=== PATIENT | female | born 1940 | race Caucasian/White ===

== ENCOUNTER → 2017-09-26 | Outpatient (CLI) | payer MEDICARE ==
[~2017-09-26] MED LIST: AMLO5 PO; ANTACID PO; ASPI325 PO; ASPI81CH PO; Acetaminophen325 M1 PO; BISA10S PR; CITA20 PO; CLOP75 PO; CVS DISPOSABLE399 ML PR; CYAN1000I IM; HYDCHL25; HYDCHL25 PO; LISI20 PO; LOPE2C PO; MEGE40T PO; METO100ER PO; Milk Of Ma400 MG/5 M PO; NITR100CA PO; Omeprazole20 M1 PO; PANT40 PO; PROC25S PR; Pedi-Dri 100,0060 GM TOP; Potassium20 MEQ/11 PO; XARELTO15 MG PO; Zofran Odt4 MG PO
== END | disposition home or self-care (01) ==
LOC: LAB 11:00
DX: N39.0 Urinary tract infection, site not specified (principal)
CPT/HCPCS: 87086

== ENCOUNTER 2017-10-11 11:51 | Inpatient (IN) | payer MEDICARE ==
[~2017-10-11] VITALS: Ht 160 cm; Wt 62.0 kg
[~2017-10-11 11:51] MED LIST changes: -AMLO5 PO; -ANTACID PO; -ASPI81CH PO; -Acetaminophen325 M1 PO; -BISA10S PR; -CITA20 PO; -CLOP75 PO; -CVS DISPOSABLE399 ML PR; -CYAN1000I IM; -HYDCHL25; -LISI20 PO; -LOPE2C PO; -MEGE40T PO; -METO100ER PO; -Milk Of Ma400 MG/5 M PO; -NITR100CA PO; -Omeprazole20 M1 PO; -PANT40 PO; -PROC25S PR; -Pedi-Dri 100,0060 GM TOP; -Potassium20 MEQ/11 PO; -XARELTO15 MG PO; -Zofran Odt4 MG PO
[2017-10-11 12:18] LABS: Source, Urine Catheter
[2017-10-11 12:24] LABS: BASOPHILS ABSOLUTE AUTO 0.03 K/mm3 (0.00-0.23); BASOPHILS PERCENT AUTO 0 % (0-2); EOSINOPHILS ABSOLUTE AUTO 0.02 K/mm3 (0.00-0.68); EOSINOPHILS PERCENT AUTO 0 % (0-6); Hematocrit 31.1 % (33.0-51.0); Hemoglobin 11.2 g/dL (11.5-16.0); IMMATURE GRAN ABSOLUTE AUTO 0.14 K/mm3 (0.00-0.10); IMMATURE GRAN PERCENT AUTO 1 % (0-1); LYMPHOCYTES ABSOLUTE AUTO 0.63 K/mm3 (0.84-5.20); LYMPHOCYTES PERCENT AUTO 3 % (21-46); MONOCYTES PERCENT AUTO 5 % (4-13); Mean Corpuscular Volume 86 fL (80-100); Mean Platelet Volume 8.6 fL (9.1-12.4); NEUTROPHILS ABSOLUTE AUTO 17.77 K/mm3 (1.96-9.15); NEUTROPHILS PERCENT AUTO 91 % (41-73); Platelet Count 289 K/mm3 (150-400); RDW Coefficient Variation 12.3 % (11.7-14.2); RDW Standard Deviation 39.2 fL (35.1-46.3); Red Blood Cell Count 3.61 M/mm3 (3.80-5.20); White Blood Cell Count 19.49 K/mm3 (4.00-11.30)
[2017-10-11 12:25] LABS: Bilirubin, Urine Neg (Neg); Blood, Urine 3+ (Neg); Glucose Qualitative, Urine 2+ (Neg); Ketones, Urine Neg (Neg); Leukocyte Esterase, Urine Neg (Neg); Nitrite, Urine Neg (Neg); Protein, Urine Neg (Neg); Urobilinogen, Urine NORM (Normal)
[2017-10-11 12:30] LABS: Appearance, Urine Clear (Clear); Color, Urine Yellow (P-Yellow)
[2017-10-11 12:31] LABS: White Blood Cells, Urine Not Seen /hpf (0-5)
[2017-10-11 12:33] LABS: Squamous Epithelial Cells Not Seen /hpf (Few)
[2017-10-11] MEDS ORDERED: HYDCHL25 (12:36)
[2017-10-11] MEDS ORDERED: AMLO5 PO (12:36)
[2017-10-11] MEDS ORDERED: LISI20 PO (12:36)
[2017-10-11 12:42] LABS: Albumin, Blood 2.4 g/dL (3.4-5.0); Albumin/Globulin Ratio 0.7 (0.8-1.8); Bilirubin, Total 0.6 mg/dL (0.1-1.0); Bun/Creatinine Ratio 27.1 (12.0-20.0); Calcium, Blood 7.8 mg/dL (8.5-10.1); Creatinine, Blood 2.73 mg/dL (0.40-1.00); Globulin, Blood 3.3 g/dL (2.2-4.0); Potassium, Blood 3.7 mmol/L (3.5-5.5); Total Protein, Blood 5.7 g/dL (6.4-8.2)
[2017-10-11] MEDS ORDERED: HYDCHL25 PO (12:43)
[2017-10-11] MEDS ORDERED: CITA20 PO (12:44)
[2017-10-11] MEDS ORDERED: PROC25S PR (12:45)
[2017-10-11] MEDS ORDERED: LOPE2C PO (12:45)
[2017-10-11] MEDS ORDERED: Acetaminophen325 M1 PO (15:25)
[2017-10-11] MEDS ORDERED: ANTACID PO (15:27)
[2017-10-11] MEDS ORDERED: BISA10S PR (15:28)
[2017-10-11] MEDS ORDERED: Milk Of Ma400 MG/5 M PO (15:30)
[2017-10-11] MEDS ORDERED: CVS DISPOSABLE399 ML PR (15:31)
[2017-10-12 06:07] LABS: Bun/Creatinine Ratio 28.6 (12.0-20.0); Calcium, Blood 7.4 mg/dL (8.5-10.1); Creatinine, Blood 1.92 mg/dL (0.40-1.00); Potassium, Blood 2.9 mmol/L (3.5-5.5)
[2017-10-12 08:26] LABS: Hematocrit 30.1 % (33.0-51.0); Hemoglobin 10.5 g/dL (11.5-16.0); Mean Corpuscular HGB 30.5 pg (26.0-34.0); Mean Corpuscular HGB Conc 34.9 g/dL (31.5-36.5); Mean Corpuscular Volume 88 fL (80-100); Mean Platelet Volume 8.9 fL (9.1-12.4); Platelet Count 259 K/mm3 (150-400); RDW Coefficient Variation 12.6 % (11.7-14.2); RDW Standard Deviation 40.2 fL (35.1-46.3); Red Blood Cell Count 3.44 M/mm3 (3.80-5.20); White Blood Cell Count 13.25 K/mm3 (4.00-11.30)
[2017-10-12 23:36] LABS: Bun/Creatinine Ratio 30.1 (12.0-20.0); Calcium, Blood 7.5 mg/dL (8.5-10.1); Creatinine, Blood 1.36 mg/dL (0.40-1.00); Potassium, Blood 3.4 mmol/L (3.5-5.5)
[2017-10-13 09:18] LABS: Bun/Creatinine Ratio 28.6 (12.0-20.0); Calcium, Blood 7.3 mg/dL (8.5-10.1); Creatinine, Blood 1.19 mg/dL (0.40-1.00); Magnesium, Blood 1.4 mg/dL (1.6-2.4); Potassium, Blood 3.1 mmol/L (3.5-5.5)
[2017-10-14 05:06] LABS: Bun/Creatinine Ratio 25.9 (12.0-20.0); Calcium, Blood 7.7 mg/dL (8.5-10.1); Creatinine, Blood 1.08 mg/dL (0.40-1.00); Magnesium, Blood 1.6 mg/dL (1.6-2.4); Potassium, Blood 3.5 mmol/L (3.5-5.5)
[2017-10-14] MEDS ORDERED: Pedi-Dri 100,0060 GM TOP (11:03)
[2017-10-14] MEDS ORDERED: METO100ER PO (11:03)
[2017-10-14] MEDS ORDERED: XARELTO15 MG PO (11:04)
[2017-10-14] MEDS ORDERED: Omeprazole20 M1 PO (11:05)
[2017-10-16 05:10] LABS: Hematocrit 29.8 % (33.0-51.0); Hemoglobin 9.9 g/dL (11.5-16.0); Mean Corpuscular HGB 30.6 pg (26.0-34.0); Mean Corpuscular HGB Conc 33.2 g/dL (31.5-36.5); Mean Platelet Volume 8.6 fL (9.1-12.4); Platelet Count 296 K/mm3 (150-400); RDW Coefficient Variation 13.2 % (11.7-14.2); RDW Standard Deviation 44.5 fL (35.1-46.3); Red Blood Cell Count 3.24 M/mm3 (3.80-5.20); White Blood Cell Count 14.29 K/mm3 (4.00-11.30)
[2017-10-16 05:11] LABS: Mean Corpuscular Volume 92 fL (80-100)
[2017-10-16 05:39] LABS: Anion Gap 8 mmol/L (6-16); Blood Urea Nitrogen 30 mg/dL (8-24); CO2, Blood 29 mmol/L (21-32); Calcium, Blood 7.8 mg/dL (8.5-10.1); Chloride, Blood 104 mmol/L (98-108); Creatinine, Blood 0.91 mg/dL (0.40-1.00); Glomerular Filtration Rate >60 (60-); Glucose, Blood 104 mg/dL (70-99); Potassium, Blood 3.5 mmol/L (3.5-5.5); Sodium, Blood 141 mmol/L (136-145)
[2017-10-16] MEDS ORDERED: PANT40 PO (08:38)
== END 2017-10-16 09:38 | DRG 683 ==
LOC: ER 11:51 → MEDS 11:52 → PCU 10-13 03:33 → MEDS 10-14 15:22 → ENPENDDIS 10-16 08:32 → EDPENDDIS 10-16 08:32 → MEDS 10-16 09:38
PROVIDERS: Emergency Medicine; Internal Medicine
DX: N17.9 Acute kidney failure, unspecified (principal); E87.1 Hypo-osmolality and hyponatremia; E44.0 Moderate protein-calorie malnutrition; E83.42 Hypomagnesemia; I48.91 Unspecified atrial fibrillation; E86.0 Dehydration; D72.829 Elevated white blood cell count, unspecified; F03.90 Unspecified dementia, unspecified severity, without behavioral disturbance, psychotic disturbance, mood disturbance, and anxiety; I10 Essential (primary) hypertension; Z66 Do not resuscitate; Z68.21 Body mass index [BMI] 21.0-21.9, adult; R10.13 Epigastric pain
CPT/HCPCS: 36415; 71045; 80048; 80053; 81001; 83735; 84484; 85025; 85027; 93005; 93010; 93306; 96361; 96365; 96366; 96372; 97116; 97162; 97530; 99285; G0378; G8978; G8979; J1650; J1940; J2001; J3010; J3475; J3480; J7030; J7050; P9612

== ENCOUNTER 2017-12-22 11:27 | Emergency (ER) | payer MEDICARE ==
[~2017-12-22] VITALS: Ht 160 cm; Wt 56.7 kg
[~2017-12-22 11:27] MED LIST changes: +AMLO5 PO; +ANTACID PO; +Acetaminophen325 M1 PO; +BISA10S PR; +CITA20 PO; +CVS DISPOSABLE399 ML PR; +HYDCHL25; +LISI20 PO; +LOPE2C PO; +METO100ER PO; +Milk Of Ma400 MG/5 M PO; +Omeprazole20 M1 PO; +PANT40 PO; +PROC25S PR; +Pedi-Dri 100,0060 GM TOP; +XARELTO15 MG PO
[2017-12-22] MEDS ORDERED: CLOP75 PO (12:20)
[2017-12-22] MEDS ORDERED: ASPI81CH PO (12:20)
[2017-12-22] MEDS ORDERED: HYDCHL25 PO (12:21)
[2017-12-22] MEDS ORDERED: CYAN1000I IM (12:22)
[2017-12-22] MEDS ORDERED: Omeprazole20 M1 PO (12:22)
[2017-12-22] MEDS ORDERED: MEGE40T PO (12:24)
[2017-12-22 13:11] LABS: BASOPHILS ABSOLUTE AUTO 0.03 K/mm3 (0.00-0.23); BASOPHILS PERCENT AUTO 0 % (0-2); EOSINOPHILS ABSOLUTE AUTO 0.09 K/mm3 (0.00-0.68); EOSINOPHILS PERCENT AUTO 1 % (0-6); Hematocrit 36.6 % (33.0-51.0); Hemoglobin 11.8 g/dL (11.5-16.0); IMMATURE GRAN ABSOLUTE AUTO 0.02 K/mm3 (0.00-0.10); IMMATURE GRAN PERCENT AUTO 0 % (0-1); LYMPHOCYTES ABSOLUTE AUTO 2.05 K/mm3 (0.84-5.20); LYMPHOCYTES PERCENT AUTO 17 % (21-46); MONOCYTES ABSOLUTE AUTO 0.64 K/mm3 (0.16-1.47); MONOCYTES PERCENT AUTO 5 % (4-13); Mean Corpuscular HGB 30.4 pg (26.0-34.0); Mean Corpuscular HGB Conc 32.2 g/dL (31.5-36.5); Mean Corpuscular Volume 94 fL (80-100); Mean Platelet Volume 10.8 fL (9.1-12.4); NEUTROPHILS ABSOLUTE AUTO 8.94 K/mm3 (1.96-9.15); NEUTROPHILS PERCENT AUTO 76 % (41-73); Platelet Count 297 K/mm3 (150-400); RDW Coefficient Variation 13.8 % (11.7-14.2); RDW Standard Deviation 47.5 fL (35.1-46.3); Red Blood Cell Count 3.88 M/mm3 (3.80-5.20); White Blood Cell Count 11.77 K/mm3 (4.00-11.30)
[2017-12-22 13:22] LABS: Albumin, Blood 3.4 g/dL (3.4-5.0); Albumin/Globulin Ratio 0.9 (0.8-1.8); Bilirubin, Total 0.6 mg/dL (0.1-1.0); Bun/Creatinine Ratio 26.7 (12.0-20.0); Calcium, Blood 9.1 mg/dL (8.5-10.1); Creatinine, Blood 1.31 mg/dL (0.40-1.00); Globulin, Blood 3.8 g/dL (2.2-4.0); Potassium, Blood 2.9 mmol/L (3.5-5.5); Total Protein, Blood 7.2 g/dL (6.4-8.2)
[2017-12-22 15:41] LABS: Source, Urine Clean Catch
[2017-12-22 15:56] LABS: Appearance, Urine Cloudy (Clear); Bilirubin, Urine Neg (Neg); Blood, Urine 2+ (Neg); Color, Urine Yellow (P-Yellow); Glucose Qualitative, Urine Neg (Neg); Ketones, Urine 1+ (Neg); Leukocyte Esterase, Urine 3+ (Neg); Nitrite, Urine Neg (Neg); Protein, Urine 2+ (Neg); Specific Gravity, Urine 1.015 (1.003-1.022); Urobilinogen, Urine 1+ (Normal)
[2017-12-22] MEDS ORDERED: Potassium20 MEQ/11 PO (16:06)
[2017-12-22] MEDS ORDERED: NITR100CA PO (16:06)
[2017-12-22] MEDS ORDERED: Zofran Odt4 MG PO (16:06)
[2017-12-22 16:12] LABS: Calcium Oxalate Crystals Few /hpf; White Blood Cells, Urine 25-50 /hpf (0-5)
[2017-12-22 16:13] LABS: Bacteria Many /hpf; Squamous Epithelial Cells Few /hpf (Few)
== END 2017-12-22 16:08 | disposition home or self-care (01) ==
LOC: ER 11:27
PROVIDERS: Emergency Medicine
DX: K29.70 Gastritis, unspecified, without bleeding (principal); E86.0 Dehydration; N39.0 Urinary tract infection, site not specified; E87.6 Hypokalemia; N17.9 Acute kidney failure, unspecified; Z88.0 Allergy status to penicillin; Z88.1 Allergy status to other antibiotic agents; Z79.899 Other long term (current) drug therapy
CPT/HCPCS: 36415; 80053; 81001; 85025; 87086; 96360; 99283; J7030